=== PATIENT | male | born 2000 | race African-American/Black ===

== ENCOUNTER → 2019-09-15 | Emergency (ER) | payer OTHER ==
[~2019-09-15] MED LIST: Dexamethasone 10 MG/ML VIAL ONE
[2019-09-15 18:25] LABS: SARS-CoV-2 MS2 Positive; SARS-CoV-2 N Gene Negative; SARS-CoV-2 S Gene Negative; SARS-CoV-2 orf1ab Negative
== END ==
LOC: ERS 10:00
DX: J02.9 Acute pharyngitis, unspecified (principal); Z20.828 Contact with and (suspected) exposure to other viral communicable diseases; F17.200 Nicotine dependence, unspecified, uncomplicated
CPT/HCPCS: 87081; 87430; 87635; 99283; J1100; U0003